=== PATIENT | male | born 1990 | race African-American/Black ===

== ENCOUNTER 2022-12-04 17:07 | Outpatient (CLI) | payer OTHER ==
--- NOTE | 2022-12-05 10:33 | MRI Report ---
PROCEDURE: KNEE WO - RT INDICATIONS: LOSE BODY RIGHT KNEE TECHNIQUE: Noncontrast sagittal PD fast spin echo and T2 fast spin echo with fat saturation, sagittal 3-D spoile d GE with fat saturation; coronal T1 spin echo and PD fast spin echo with fat saturation, and axial P D fast spin echo with fat saturation through the knee. COMPARISON: None. FINDINGS: Image quality: Excellent. 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 Mil d anterior translation of the tibia is similar relative to the distal femur. Posterior cruciate ligament: Intact. Medial collateral ligament: Intact. Lateral collateral ligament: Intact. Medial meniscus: Complex tearing of the medial meniscus is seen with displaced meniscal flap compone nt at the posterior root attachment extending superiorly into the posterior intercondylar notch. Mode rately diminutive appearance of the posterior horn and body of the medial meniscus is noted. Lateral meniscus: There is vertical longitudinal tearing of the anterior horn of the lateral meniscu s extending to the anterior root attachment. Deep radial tearing is seen at the posterior root attach ment of the lateral meniscus. Wrisberg ligament remains intact. Medial and lateral tendons: The semimembranosus tendon insertions appear intact. Visualized portion s of the pes anserinus tendons appear normal. The popliteus tendon appears intact. Iliotibial band appears normal. Anterior structures: There is mild patellar tendinosis. The distal quadriceps tendon is intact. No p atellar subluxation. No femoral trochlear dysplasia or ventral trochlear prominence. No edema in th e infrapatellar fat pad. Bones: No acute trabecular bone injury or fracture. Medial femorotibial cartilage: Focal moderate grade partial thickness cartilage irregularity is seen at the posteroinferior portion of the medial femoral condyle. Small marginal osteophyte formation is noted. Lateral femorotibial cartilage: Multifocal high-grade and full thickness cartilage loss is seen thro ughout the weightbearing portion of the lateral femoral condyle and at the posterior weightbearing po rtion of the lateral tibial plateau. Small marginal osteophytes are present. Patellofemoral cartilage: There is full-thickness cartilage loss at the superior aspect of the media l femoral trochlear and trochlear groove with subchondral osteophyte formation. Full-thickness cartil age loss is also seen at the lateral patellar facet with subchondral cystic changes and subchondral s clerosis. Marginal osteophytes are present. Soft tissues: There is a small joint effusion. And 8 x 5 x 11 mm loose body is seen in the lateral s uprapatellar recess. There is a trace medial popliteal cyst. The musculature surrounding the knee is normal in bulk. 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 2.Superiorly displaced meniscal flap tear at the posterior root attachment of the medial meniscus wit h meniscal tissue extending superiorly to the posterior intercondylar notch. 3.Complex tearing of the lateral meniscus including a vertical longitudinal component at the anterior horn extending to the anterior root attachment. A deep radial component is seen at the posterior lili t attachment without significant extrusion of the meniscal body 4.Large area of full-thickness cartilage loss in the patellofemoral compartment at the medial femoral trochlea and trochlear groove with subchondral osteophyte formation as well as at the lateral patell ar facet. High-grade and full thickness cartilage loss is seen in the weightbearing portion of the la teral femorotibial compartment. 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 5.Mild patellar tendinosis. 6.Small joint effusion with an 11 mm articular loose body in the lateral suprapatellar recess.. Reviewed by: Shreyas Trujillo MD on 12/05/2022 10:32 AM PDT Approved by: Shreyas Trujillo MD on 12/05/2022 10:32 AM PDT Station ID: [id number]
== END 2022-12-04 17:08 | disposition home or self-care (01) ==
LOC: DI 17:07
DX: M23.41 Loose body in knee, right knee (principal); S83.241A Other tear of medial meniscus, current injury, right knee, initial encounter; S83.511D Sprain of anterior cruciate ligament of right knee, subsequent encounter; S83.271A Complex tear of lateral meniscus, current injury, right knee, initial encounter; M94.261 Chondromalacia, right knee; M25.461 Effusion, right knee; M67.961 Unspecified disorder of synovium and tendon, right lower leg